=== PATIENT | male | born 1995 | race Caucasian/White ===

== ENCOUNTER 2018-12-04 18:04 | Emergency (ER) | payer OTHER, SELFPAY ==
[~2018-12-04] VITALS: Ht 185.4 cm; Wt 84.0 kg
[2018-12-04 18:39] VITALS: BP 125/76
[2018-12-04 18:42] LABS: HEMATOCRIT 46.1 % (42.0-52.0); HEMOGLOBIN 15.7 g/dl (13.5-17.5); MEAN CORPUSCULAR HEMOGLOBIN 29.2 pg (27.0-33.0); MEAN CORPUSCULAR HGB CONC 34.1 g/dl (32.0-36.5); MEAN CORPUSCULAR VOLUME 85.8 fl (80.0-96.0); PLATELET COUNT, AUTOMATED 293 10^3/uL (150-450); RED BLOOD COUNT 5.37 10^6/uL (4.30-6.10); WHITE BLOOD COUNT 9.4 10^3/uL (4.0-10.0)
[2018-12-04 19:24] LABS: ACETAMINOPHEN LEVEL < 2.0 UG/ML (10.0-30.0); ALBUMIN 4.1 GM/DL (3.2-5.2); ALT/SGPT 56 U/L (12-78); BILIRUBIN,DIRECT 0.1 MG/DL (0.0-0.2); BILIRUBIN,TOTAL 0.5 MG/DL (0.2-1.0); BLOOD UREA NITROGEN 12 MG/DL (7-18); CALCIUM LEVEL 8.8 MG/DL (8.5-10.1); CARBON DIOXIDE LEVEL 28 MEQ/L (21-32); CHLORIDE LEVEL 107 MEQ/L (98-107); CREATININE FOR GFR 0.98 MG/DL (0.70-1.30); ETHYL ALCOHOL (ETHANOL) < 0.003 % (0.000-0.010); GLOMERULAR FILTRATION RATE > 60.0 (>60); GLUCOSE, FASTING 83 MG/DL (70-100); POTASSIUM SERUM 4.2 MEQ/L (3.5-5.1); SALICYLATE LEVEL < 1.7 MG/DL (5.0-30.0); SODIUM LEVEL 142 MEQ/L (136-145); THYROID STIMULATING HORMONE 0.723 uIU/ML (0.358-3.740); TOTAL PROTEIN 7.8 GM/DL (6.4-8.2)
[2018-12-04 20:07] LABS: AMPHETAMINES LEVEL URINE NEGATIVE (NEGATIVE); BARBITURATES URINE NEGATIVE (NEGATIVE); BENZODIAZEPINES URINE NEGATIVE (NEGATIVE); CANNABINOIDS URINE NEGATIVE (NEGATIVE); COCAINE METABOLITE URINE NEGATIVE (NEGATIVE); METHADONE URINE NEGATIVE (NEGATIVE); OPIATES URINE NEGATIVE (NEGATIVE); PHENCYCLIDINE URINE NEGATIVE (NEGATIVE)
== END 2018-12-04 22:46 | disposition home or self-care (01) ==
LOC: M ED 18:04
DX: F66 Other sexual disorders (principal); R45.87 Impulsiveness; F43.21 Adjustment disorder with depressed mood
CPT/HCPCS: 36415; 80048; 80076; 80307; 84443; 85027; 99285; G0480

== ENCOUNTER 2019-10-14 11:40 | Day surgery (SDC) | payer OTHER ==
[~2019-10-14] VITALS: Ht 185.4 cm; Wt 94.3 kg
[~2019-10-14 11:40] MED LIST: LAMO100T3 PO; NS 1,000 ML IV ONE; PROP10TA56 PO
[2019-10-14] MEDS ORDERED: PROPOFOL 200 MG/20 ML VIAL As Ordered ONE (12:50)
[2019-10-14] MEDS ORDERED: LIDOCAINE 2% INJ 100 MG/5 ML SDV (FOR ANES.) As Ordered ONE (12:50)
--- NOTE | 2019-10-14 12:59 | ROOR ---
Patient Name: Charly Robbins Procedure Date: 10/14/2019 12:43 PM Date of : 1995 Age: 23 Room: [facility] Gender: Male Note Status: Finalized Procedure: Upper GI endoscopy Indications: Heartburn Providers: Shailesh MOLINA MD Referring MD: Jb Gurrola DO [place] Provider: Medicines: Monitored Anesthesia Care Complications: No immediate complications. Procedure: Pre-Anesthesia Assessment: - The heart rate, respiratory rate, oxygen saturations, blood pressure, adequacy of pulmonary ventilation, and response to care were monitored throughout the procedure. The Endoscope was introduced through the mouth, and advanced to the second part of duodenum. The upper GI endoscopy was accomplished without difficulty. The patient tolerated the procedure well. Findings: The Z-line was variable and was found 39 cm from the incisors. This was biopsied with a cold forceps for histology. Minimal inflammation characterized by erythema was found in the entire examined stomach. Biopsies were taken with a cold forceps for Helicobacter pylori testing. The exam was otherwise without abnormality. Impression: - Normal esophagus with Z-line variable, 39 cm from the incisors. Biopsied. - Minimal gastritis. Biopsied. - The stomach is otherwise normal. - The duodenum is normal. Recommendation: - Continue present medications. - Observe patient's clinical course. - Follow an antireflux regimen. - Telephone endoscopist for pathology results in 2 weeks. Shailesh Molina MD Shailesh MOLINA MD 10/14/2019 12:59:20 PM Electronically signed by Shailesh MOLINA MD Number of Addenda: 0 Note Initiated On: 10/14/2019 12:43 PM Estimated Blood Loss: Estimated blood loss: none.
[2019-10-14 13:34] VITALS: BP 123/88
== END 2019-10-14 13:36 | disposition home or self-care (01) ==
LOC: M OPP 11:40
PROVIDERS: ATTEND Internal Medicine Gastroenterology
DX: K22.8 Other specified diseases of esophagus (principal); K29.70 Gastritis, unspecified, without bleeding; R12 Heartburn; F84.0 Autistic disorder; F41.9 Anxiety disorder, unspecified; Z79.899 Other long term (current) drug therapy

== ENCOUNTER → 2021-04-25 | Outpatient (CLI) | payer OTHER ==
[~2021-04-25] MED LIST changes: -NS 1,000 ML IV ONE
[2021-04-25 14:37] LABS: FREE T4 1.05 NG/DL (0.76-1.46); THYROID STIMULATING HORMONE 2.1 uIU/ML (0.358-3.740)
== END ==
LOC: M LAB 12:42
PROVIDERS: ATTEND Internal Medicine Gastroenterology
DX: R63.4 Abnormal weight loss (principal)

== ENCOUNTER → 2021-04-25 | Outpatient (REF) | payer OTHER | LOC: M LAB REF 14:03 | PROVIDERS: ATTEND Internal Medicine Gastroenterology | DX: R63.4 Abnormal weight loss (principal) ==

== ENCOUNTER → 2021-08-06 | Outpatient (CLI) | payer OTHER ==
[~2021-08-06] MED LIST changes: +CBD OIL; +D31000TA2 PO; +OMEP1CAP73 PO
== END ==
LOC: M LABSMTC 11:37
PROVIDERS: ATTEND Anesthesiology
DX: Z01.812 Encounter for preprocedural laboratory examination (principal); Z20.822 Contact with and (suspected) exposure to COVID-19

== ENCOUNTER 2021-08-11 08:29 | Day surgery (SDC) | payer OTHER ==
[~2021-08-11] VITALS: Ht 185.4 cm; Wt 75.7 kg
[~2021-08-11 08:29] MED LIST changes: +LIDOCAINE 2% 100MG/5ML SDV (FOR ANES.) As Ordered ONE; +NS 1,000 ML IV ONE; +fentaNYL 100 MCG/2 ML INJECTION (J3010) As Ordered ONE; +propofoL 500 MG/50 ML VIAL As Ordered ONE
--- NOTE | 2021-08-11 09:36 | ROOR ---
Patient Name: Charly Robbins Procedure Date: 08/11/2021 9:26 AM Date of : 1995 Age: 25 Room: [facility] Gender: Male Note Status: Finalized Procedure: Upper GI endoscopy Indications: Abdominal pain, Abdominal bloating, Weight loss Providers: Shailesh Molina MD Referring MD: Jb Gurrola DO Requesting Provider: Medicines: Monitored Anesthesia Care Complications: No immediate complications. Procedure: Pre-Anesthesia Assessment: - The heart rate, respiratory rate, oxygen saturations, blood pressure, adequacy of pulmonary ventilation, and response to care were monitored throughout the procedure. The Endoscope was introduced through the mouth, and advanced to the second part of duodenum. The upper GI endoscopy was accomplished without difficulty. The patient tolerated the procedure well. Findings: The esophagus was normal. The stomach was normal. The examined duodenum was normal. Impression: - Normal esophagus. - Normal stomach. - Normal examined duodenum. - No specimens collected. Recommendation: - Continue present medications. - Observe patient's clinical course. Procedure Code(s): --- Professional --- 96016, Esophagogastroduodenoscopy, flexible, transoral; diagnostic, including collection of specimen(s) by brushing or washing, when performed (separate procedure) Diagnosis Code(s): --- Professional --- R63.4, Abnormal weight loss R14.0, Abdominal distension (gaseous) R10.9, Unspecified abdominal pain CPT copyright 2019 [employer]. All rights reserved. The codes documented in this report are preliminary and upon computer science professor review may be revised to meet current compliance requirements. Shailesh Molina MD Shailesh Molina MD 08/11/2021 9:36:09 AM Electronically signed by Shailesh Molina MD Number of Addenda: 0 Note Initiated On: 08/11/2021 9:26 AM Estimated Blood Loss: Estimated blood loss: none.
--- NOTE | 2021-08-11 09:57 | ROOR ---
Patient Name: Charly Robbins Procedure Date: 08/11/2021 9:27 AM Date of : 1995 Age: 25 Room: [facility] Gender: Male Note Status: Finalized Procedure: Colonoscopy Indications: Change in bowel habits, Weight loss Providers: Shailesh Molina MD Referring MD: Jb Gurrola DO Requesting Provider: Medicines: Monitored Anesthesia Care Complications: No immediate complications. Procedure: Pre-Anesthesia Assessment: - The heart rate, respiratory rate, oxygen saturations, blood pressure, adequacy of pulmonary ventilation, and response to care were monitored throughout the procedure. The Colonoscope was introduced through the anus and advanced to 10 cm into the ileum. The colonoscopy was performed without difficulty. The patient tolerated the procedure well. The quality of the bowel preparation was good. Findings: The perianal and digital rectal examinations were normal. The colon (entire examined portion) appeared normal. The terminal ileum appeared normal. Internal hemorrhoids were found during retroflexion. The hemorrhoids were small. Biopsies for histology were taken with a cold forceps for evaluation of microscopic colitis. Impression: - The entire examined colon is normal. - The examined portion of the ileum was normal. - Internal hemorrhoids. - Biopsies were taken with a cold forceps for evaluation of microscopic colitis. - (Irritable Bowel Syndrome/IBS suspected.) Recommendation: - Telephone endoscopist for pathology results in 2 weeks. - Use fiber, for example Citrucel, Fibercon, Konsyl or Metamucil. Procedure Code(s): --- Professional --- 32782, Colonoscopy, flexible; with biopsy, single or multiple Diagnosis Code(s): --- Professional --- R63.4, Abnormal weight loss R19.4, Change in bowel habit K64.8, Other hemorrhoids CPT copyright 2019 [employer]. All rights reserved. The codes documented in this report are preliminary and upon counselor education professor review may be revised to meet current compliance requirements. Shailesh Molina MD Shailesh Molina MD 08/11/2021 9:56:47 AM Electronically signed by Shailesh Molina MD Number of Addenda: 0 Note Initiated On: 08/11/2021 9:27 AM Estimated Blood Loss: Estimated blood loss: none.
[2021-08-11 10:20] VITALS: BP 123/77
== END 2021-08-11 10:35 | disposition home or self-care (01) ==
LOC: M OPP 08:29
PROVIDERS: ATTEND Internal Medicine Gastroenterology
DX: R19.4 Change in bowel habit (principal); R63.4 Abnormal weight loss; K64.8 Other hemorrhoids; R14.0 Abdominal distension (gaseous); R10.9 Unspecified abdominal pain; Z79.899 Other long term (current) drug therapy
CPT/HCPCS: 43235; 88305; J3010